=== PATIENT | male | born 1980 | race Two or more races ===

== ENCOUNTER 2017-07-16 08:43 | Inpatient (IN) | payer SELFPAY ==
[2017-07-16 10:22] VITALS: BMI 25.7
--- NOTE | 2017-07-16 13:22 | HP ---
CIWA Score - CIWA Score Nausea/Vomitin-No Nausea/No Vomiting Muscle Tremors: 4-Moderate,w/Arms Extend Anxiety: 3 Agitation: 4-Moderately Restless Paroxysmal Sweats: 3 Orientation: 0-Oriented Tacttile Disturbances: 0-None Auditory Disturbances: 0-None Visual Disturbances: 0-None Headache: 1-Very Mild CIWA-Ar Total Score: 15 Admission ROS BHS - HPI Chief Complaint: I need to be here because I am drinking way too much. Allergies/Adverse Reactions: Allergies Allergy/AdvReac Type Severity Reaction Status Date / Time No Known Allergies Allergy Verified 07/16/17 11:22 History of Present Illness: pt is a 37yr old male with a history of alcohol dependence seeking detox for treatment. Exam Limitations: No Limitations - Ebola screening Have you traveled outside of the country in the last 21 days: No Have you had contact with anyone from an Ebola affected area: No Have you been sick,other than usual withdrawal symptoms: No Do you have a fever: No - Review of Systems Constitutional: Chills, Diaphoresis, Loss of Appetite, Night Sweats, Changes in sleep, Unexplained wgt Loss EENT: reports: No Symptoms Reported Respiratory: reports: No Symptoms reported Cardiac: reports: Syncope GI: reports: Poor Appetite, Poor Fluid Intake : reports: No Symptoms Reported Musculoskeletal: reports: No Symptoms Reported Integumentary: reports: Flushing, Sweating, Other (dry skin) Neuro: reports: Headache, Tingling, Tremors Endocrine: reports: Excessive Sweating, Flushing Hematology: reports: No Symptoms Reported Psychiatric: reports: Judgement Intact, Mood/Affect Appropiate, Orientated x3, Agitated, Anxious Other Systems: Reviewed and Negative Patient History - Patient Medical History Hx Anemia: No Hx Asthma: No Hx Chronic Obstructive Pulmonary Disease (COPD): No Hx Cancer: No Hx Cardiac Disorders: No Hx Congestive Heart Failure: No Hx Hypertension: No Hx Hypercholesterolemia: No Hx Pacemaker: No HX Cerebrovascular Accident: No Hx Seizures: No Hx Dementia: No Hx Diabetes: No Hx Gastrointestinal Disorders: No Hx Liver Disease: No Hx Genitourinary Disorders: No Hx Sexually Transmitted Disorders: No Hx Renal Disease (ESRD): No Hx Thyroid Disease: No Hx Human Immunodeficiency Virus (HIV): No Hx Hepatitis C: No Hx Depression: Yes Hx Suicide Attempt: No (denies) Hx Bipolar Disorder: No Hx Schizophrenia: No - Patient Surgical History Past Surgical History: No - PPD History Previous Implant?: Yes Documented Results: Negative w/o proof Implanted On Prior R Admission?: Yes Date: 06/27/15 PPD to be Administered?: Yes - Reproductive History Patient is a Female of Child Bearing Age (11 -55 yrs old): No - Smoking Cessation Smoking history: Current every day smoker Have you smoked in the past 12 months: Yes Aproximately how many cigarettes per day: 20 Hx Chewing Tobacco Use: No Initiated information on smoking cessation: Yes 'Breaking Loose' booklet given: 07/16/17 - Substance & Tx. History Hx Alcohol Use: Yes Hx Substance Use: Yes Substance Use Type: Alcohol, Marijuana Hx Substance Use Treatment: Yes (last detox 06/2015 [facility]) - Substances Abused Alcohol Route: Oral Frequency: Daily Amount used: 3 pints valerie Age of first use: 17 Date of Last Use: 07/16/17 Marijuana/Hashish Route: Smoking Frequency: Daily Amount used: $20 Age of first use: 17 Date of Last Use: 07/15/17 Family Disease History - Family Disease History Family Disease History: Diabetes: Father (HTN), Heart Disease: Father, Other: Mother (ALCOHOL), Brother (ALCOHOL) Admission Physical Exam S - Vital Signs Vital Signs: Vital Signs - 24 hr 07/16/17 10:19 Temperature 97.3 F L Pulse Rate 72 Respiratory 19 Rate Blood Pressure 123/87 - Physical General Appearance: Yes: Appropriately Dressed, Moderate Distress, Tremorous, Irritable, Sweating, Anxious HEENTM: Yes: Normal Voice Respiratory: Yes: Lungs Clear, Normal Breath Sounds, No Respiratory Distress Neck: Yes: Within Normal Limits Breast: Yes: Within Normal Limits Cardiology: Yes: Regular Rhythm, Regular Rate, S1, S2 Abdominal: Yes: Normal Bowel Sounds, Non Tender, Soft Genitourinary: Yes: Within Normal Limits Back: Yes: Normal Inspection Musculoskeletal: Yes: full range of Motion, Back pain Extremities: Yes: Normal Capillary Refill, Normal Inspection, Tremors Neurological: Yes: Fully Oriented, Alert, Normal Response Integumentary: Yes: Normal Color, Diaphoresis Lymphatic: Yes: Within Normal Limits - Diagnostic (1) Cannabis dependence Current Visit: Yes Status: Chronic (2) Nicotine dependence Current Visit: Yes Status: Chronic Qualifiers: Nicotine product type: cigarettes Substance use status: uncomplicated Qualified Code(s): F17.210 - Nicotine dependence, cigarettes, uncomplicated; F17.210 - Nicotine dependence, cigarettes, uncomplicated (3) Alcohol dependence with uncomplicated withdrawal Current Visit: Yes Status: Chronic Cleared for Admission [facility] - Detox or Rehab [facility] Level of Care: Medically Managed Detox Regimen/Protocol: Librium BHS Breath Alcohol Content Breath Alcohol Content: 0.024 Urine Drug Screen - Results Drug Screen Negative: No Urine Drug Screen Results: THC-Marijuana
[2017-07-16] MEDS ORDERED: MAGNESIUM CITRATE 300 ML BOTTLE PO PRN (13:23)
[2017-07-16] MEDS ORDERED: hydrOXYzine PAMOATE 50 MG CAPSULE (FP) PO PRN (13:23)
[2017-07-16] MEDS ORDERED: chlordiazePOXIDE HCL 25 MG CAPSULE PO PRN (13:23)
[2017-07-16] MEDS ORDERED: NICOTINE POLACRILEX 4 MG GUM BUC PRN (13:23)
[2017-07-16] MEDS ORDERED: MENTHOL/PHENOL 1 EACH UD MM PRN (13:23)
[2017-07-16] MEDS ORDERED: guaiFENesin/D-METHORPHAN HB 10 ML UNIT-DOSE CUPS PO PRN (13:23)
[2017-07-16] MEDS ORDERED: LOPERAMIDE HCL 2 MG CAPSULE PO PRN (13:23)
[2017-07-16] MEDS ORDERED: MAGNESIUM HYDROX 2400MG/30ML ORAL SUSPENSION 30 ML CUP PO PRN (13:23)
[2017-07-16] MEDS ORDERED: P-EPHED 60MG/TRIPROLIDI 2.5MG TABLET PO PRN (13:23)
[2017-07-16] MEDS ORDERED: MAG HYDROX/AL HYDROX/SIMETH 30 ML UNIT-DOSE CUP PO PRN (13:23)
[2017-07-16] MEDS ORDERED: IBUPROFEN 400 MG TABLET (FP) PO PRN (13:23)
[2017-07-16] MEDS ORDERED: ACETAMINOPHEN 325 MG TABLET (FP) PO PRN (13:23)
[2017-07-16] MEDS ORDERED: diphenhydrAMINE HCL 50 MG CAPSULE PO PRN (13:23)
[2017-07-16] MEDS ORDERED: chlordiazePOXIDE HCL 25 MG CAPSULE PO ONE (14:53)
[2017-07-16] MEDS: chlordiazePOXIDE HCL 25 MG CAPSULE PO SCH ×2 (16:35→22:16)
[2017-07-16] MEDS: THIAMINE HCL 100 MG TABLET (FP) PO SCH (22:18)
[2017-07-16 22:20] LABS: URINE APPEARANCE SLCLOUDY; URINE BILIRUBIN NEGATIVE (NEGATIVE); URINE BLOOD NEGATIVE (NEGATIVE); URINE COLOR YELLOW; URINE GLUCOSE (UA) NEGATIVE (NEGATIVE); URINE KETONE NEGATIVE (NEGATIVE); URINE NITRITE NEGATIVE (NEGATIVE); URINE PROTEIN NEGATIVE (NEGATIVE); URINE UROBILINOGEN NEGATIVE mg/dL (0.2-1.0)
[2017-07-16 23:39] LABS: URINE LEUK ESTERASE Negative (NEGATIVE)
[2017-07-17] MEDS: chlordiazePOXIDE HCL 25 MG CAPSULE PO SCH ×4 (05:51→22:27)
[2017-07-17 09:59] LABS: MCH 30.5 pg (25.7-33.7); MCHC 32.6 g/dl (32.0-35.9); MEAN CELL VOLUME 93.8 fl (80-96); MEAN PLT VOLUME 9.1 fl (7.5-11.1); PLATELET COUNT 225 K/MM3 (134-434); RDW 15.6 % (11.9-15.9)
[2017-07-17] MEDS: NICOTINE 21 MG/24 HOURS TOPICAL PATCH TD SCH (10:28)
[2017-07-17] MEDS: PRENATAL VITAMINS W/ FOLIC ACID TABLET (FP) PO SCH (10:28)
[2017-07-17 10:39] LABS: ALK PHOS 85 U/L (45-117); ANION GAP 7 (8-16); BILIRUBIN,TOTAL 0.6 mg/dL (0.2-1.0); CALCIUM 8.6 mg/dL (8.5-10.1); CO2 30 mmol/L (21-32); GLUCOSE,RANDOM 81 mg/dL (74-106); SGOT/AST 29 U/L (15-37); SGPT/ALT 27 U/L (12-78); TOT PROT 7.8 g/dl (6.4-8.2)
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
[2017-07-17] MEDS ORDERED: ONDANSETRON *ODT* 4 MG TABLET SL PRN (10:56)
--- NOTE | 2017-07-17 10:56 | PN ---
[facility] CIWA - CIWA Score Nausea/Vomitin-No Nausea/No Vomiting Muscle Tremors: 4-Moderate,w/Arms Extend Anxiety: 4-Mod. Anxious/Guarded Agitation: 4-Moderately Restless Paroxysmal Sweats: 1-Minimal Palms Moist Orientation: 0-Oriented Tacttile Disturbances: 3-Moderate Itch/Numb/Burn Auditory Disturbances: 0-None Visual Disturbances: 0-None Headache: 0-None Present CIWA-Ar Total Score: 16 BHS Progress Note (SOAP) Subjective: SLIGHT ANXIETY,SWEATS,TREMORS,NAUSEA, INTERMITTENT SLEEP. Objective: 07/17/17 10:55 Vital Signs Temperature 96.2 F L 07/17/17 09:22 Pulse Rate 87 07/17/17 09:22 Respiratory Rate 18 07/17/17 09:22 Blood Pressure 115/86 07/17/17 09:22 O2 Sat by Pulse Oximetry (%) Laboratory Last Values WBC 4.0 K/mm3 (4.0-10.0) 07/17/17 06:00 RBC 4.78 M/mm3 (4.00-5.60) 07/17/17 06:00 Hgb 14.6 GM/dL (11.7-16.9) 07/17/17 06:00 Hct 44.8 % (35.4-49) 07/17/17 06:00 MCV 93.8 fl (80-96) 07/17/17 06:00 MCH 30.5 pg (25.7-33.7) 07/17/17 06:00 MCHC 32.6 g/dl (32.0-35.9) 07/17/17 06:00 RDW 15.6 % (11.9-15.9) D 07/17/17 06:00 Plt Count 225 K/MM3 (134-434) 07/17/17 06:00 MPV 9.1 fl (7.5-11.1) 07/17/17 06:00 Urine Color Yellow 07/16/17 22:00 Urine Appearance Slcloudy 07/16/17 22:00 Urine pH 5.0 (5.0-8.0) 07/16/17 22:00 Ur Specific [place] 1.020 (1.005-1.025) 07/16/17 22:00 Urine Protein Negative (NEGATIVE) 07/16/17 22:00 Urine Glucose (UA) Negative (NEGATIVE) 07/16/17 22:00 Urine Ketones Negative (NEGATIVE) 07/16/17 22:00 Urine Blood Negative (NEGATIVE) 07/16/17 22:00 Urine Nitrite Negative (NEGATIVE) 07/16/17 22:00 Urine Bilirubin Negative (NEGATIVE) 07/16/17 22:00 Urine Urobilinogen Negative mg/dL (0.2-1.0) 07/16/17 22:00 Ur Leukocyte Esterase Negative (NEGATIVE) 07/16/17 22:00 RPR Titer Nonreactive (NONREACTIVE) 07/17/17 06:00 Assessment: 07/17/17 10:56 WITHDRAWAL SX Plan: CONTINUE DETOX ZOFRAN DIRECTED.
[2017-07-17] MEDS ORDERED: traZODone HCL 50 MG TABLET (FP) PO SCH (22:00)
[2017-07-17] MEDS: THIAMINE HCL 100 MG TABLET (FP) PO SCH (22:26)
[2017-07-18] MEDS: chlordiazePOXIDE HCL 25 MG CAPSULE PO SCH ×2 (05:36→10:14)
[2017-07-18 09:20] VITALS: BP 117/83; PULSE 70; TEMP 97.7
[2017-07-18] MEDS: NICOTINE 21 MG/24 HOURS TOPICAL PATCH TD SCH (10:14)
[2017-07-18] MEDS: PRENATAL VITAMINS W/ FOLIC ACID TABLET (FP) PO SCH (10:14)
--- NOTE | 2017-07-18 11:11 | PN ---
[facility] CIWA - CIWA Score Nausea/Vomitin-No Nausea/No Vomiting Muscle Tremors: 4-Moderate,w/Arms Extend Anxiety: 4-Mod. Anxious/Guarded Agitation: 4-Moderately Restless Paroxysmal Sweats: 1-Minimal Palms Moist Orientation: 0-Oriented Tacttile Disturbances: 3-Moderate Itch/Numb/Burn Auditory Disturbances: 0-None Visual Disturbances: 0-None Headache: 0-None Present CIWA-Ar Total Score: 16 BHS Progress Note (SOAP) Subjective: ANXIETY,TREMORS, SWEATS,INTERMITTENT SLEEP. Objective: 07/18/17 11:11 Vital Signs Temperature 97.7 F 07/18/17 09:19 Pulse Rate 70 07/18/17 09:19 Respiratory Rate 18 07/18/17 09:19 Blood Pressure 117/83 07/18/17 09:19 O2 Sat by Pulse Oximetry (%) Laboratory Last Values WBC 4.0 K/mm3 (4.0-10.0) 07/17/17 06:00 RBC 4.78 M/mm3 (4.00-5.60) 07/17/17 06:00 Hgb 14.6 GM/dL (11.7-16.9) 07/17/17 06:00 Hct 44.8 % (35.4-49) 07/17/17 06:00 MCV 93.8 fl (80-96) 07/17/17 06:00 MCH 30.5 pg (25.7-33.7) 07/17/17 06:00 MCHC 32.6 g/dl (32.0-35.9) 07/17/17 06:00 RDW 15.6 % (11.9-15.9) D 07/17/17 06:00 Plt Count 225 K/MM3 (134-434) 07/17/17 06:00 MPV 9.1 fl (7.5-11.1) 07/17/17 06:00 Sodium 141 mmol/L (136-145) 07/17/17 06:00 Potassium 4.2 mmol/L (3.5-5.1) 07/17/17 06:00 Chloride 104 mmol/L (98-107) 07/17/17 06:00 Carbon Dioxide 30 mmol/L (21-32) 07/17/17 06:00 Anion Gap 7 (8-16) L 07/17/17 06:00 BUN 14 mg/dL (7-18) 07/17/17 06:00 Creatinine 1.0 mg/dL (0.7-1.3) D 07/17/17 06:00 Creat Clearance w eGFR > 60 (>60) 07/17/17 06:00 Random Glucose 81 mg/dL (74-106) 07/17/17 06:00 Calcium 8.6 mg/dL (8.5-10.1) 07/17/17 06:00 Total Bilirubin 0.6 mg/dL (0.2-1.0) 07/17/17 06:00 AST 29 U/L (15-37) D 07/17/17 06:00 ALT 27 U/L (12-78) D 07/17/17 06:00 Alkaline Phosphatase 85 U/L (45-117) 07/17/17 06:00 Total Protein 7.8 g/dl (6.4-8.2) 07/17/17 06:00 Albumin 4.0 g/dl (3.4-5.0) 07/17/17 06:00 Urine Color Yellow 07/16/17 22:00 Urine Appearance Slcloudy 07/16/17 22:00 Urine pH 5.0 (5.0-8.0) 07/16/17 22:00 Ur Specific [place] 1.020 (1.005-1.025) 07/16/17 22:00 Urine Protein Negative (NEGATIVE) 07/16/17 22:00 Urine Glucose (UA) Negative (NEGATIVE) 07/16/17 22:00 Urine Ketones Negative (NEGATIVE) 07/16/17 22:00 Urine Blood Negative (NEGATIVE) 07/16/17 22:00 Urine Nitrite Negative (NEGATIVE) 07/16/17 22:00 Urine Bilirubin Negative (NEGATIVE) 07/16/17 22:00 Urine Urobilinogen Negative mg/dL (0.2-1.0) 07/16/17 22:00 Ur Leukocyte Esterase Negative (NEGATIVE) 07/16/17 22:00 RPR Titer Nonreactive (NONREACTIVE) 07/17/17 06:00 Assessment: 07/18/17 11:11 WITHDRAWAL SX Plan: CONTINUE DETOX
--- NOTE | 2017-07-18 11:59 | EKG ---
Test Reason : Blood Pressure : / mmHG Vent. Rate : 059 BPM Atrial Rate : 059 BPM P-R Int : 134 ms QRS Dur : 092 ms QT Int : 436 ms P-R-T Axes : 068 079 063 degrees QTc Int : 431 ms SINUS BRADYCARDIA OTHERWISE NORMAL ECG NO PREVIOUS ECGS AVAILABLE Confirmed by JEANNETTE MCKEON, JAE ([id number]) on 07/18/2017 11:59:14 AM Referred By: Confirmed By:JAE MACHADO MD
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
[2017-07-18] MEDS ORDERED: chlordiazePOXIDE 5 MG CAPSULE PO SCH (17:00)
[2017-07-19] MEDS ORDERED: chlordiazePOXIDE HCL 10 MG CAPSULE PO SCH (17:00)
== END 2017-07-18 12:20 | disposition left against medical advice (07) | DRG 770 ==
LOC: YASAS 08:43 → Y3N 14:31
PROVIDERS: ADMIT Internal Medicine; ATTEND Internal Medicine
PROC: HZ2ZZZZ Detoxification Services for Substance Abuse Treatment (ICD-10-PCS; principal; 2017-07-16)
DX: F10.230 Alcohol dependence with withdrawal, uncomplicated (principal); F12.20 Cannabis dependence, uncomplicated; F17.213 Nicotine dependence, cigarettes, with withdrawal; F10.24 Alcohol dependence with alcohol-induced mood disorder; F10.282 Alcohol dependence with alcohol-induced sleep disorder
CPT/HCPCS: 36415; 80053; 81003; 85027; 86593; 93005; 93010

== ENCOUNTER 2018-03-23 17:43 | Inpatient (IN) | payer SELFPAY ==
[2018-03-23 18:58] VITALS: BMI 28.0
--- NOTE | 2018-03-23 19:24 | HP ---
CIWA Score - CIWA Score Nausea/Vomitin Muscle Tremors: 3 Anxiety: 3 Agitation: 2 Paroxysmal Sweats: 2 Orientation: 0-Oriented Tacttile Disturbances: 2-Mild Itch/Numbness/Burn Auditory Disturbances: 0-None Visual Disturbances: 1-Very Mild Sensitivity Headache: 1-Very Mild CIWA-Ar Total Score: 17 Admission ROS BHS - HPI Chief Complaint: I am alcoholic and I need help Allergies/Adverse Reactions: Allergies Allergy/AdvReac Type Severity Reaction Status Date / Time No Known Allergies Allergy Verified 07/16/17 11:22 History of Present Illness: 38 y/o male presents for detox from alcohol. His last treatment was in July of 2017 at [facility]. Exam Limitations: No Limitations - Ebola screening Have you traveled outside of the country in the last 21 days: No (N) Have you had contact with anyone from an Ebola affected area: No Have you been sick,other than usual withdrawal symptoms: No Do you have a fever: No - Review of Systems Constitutional: Changes in sleep EENT: reports: No Symptoms Reported Respiratory: reports: Cough, Shortness of Breath GI: reports: No Symptoms Reported : reports: No Symptoms Reported Musculoskeletal: reports: Back Pain, Joint Pain, Muscle Pain Integumentary: reports: No Symptoms Reported Neuro: reports: Headache, Tingling, Tremors Endocrine: reports: No Symptoms Reported Hematology: reports: No Symptoms Reported Psychiatric: reports: Anxious, Depressed Other Systems: Reviewed and Negative Patient History - Patient Medical History Hx Anemia: No Hx Asthma: No Hx Chronic Obstructive Pulmonary Disease (COPD): No Hx Cancer: No Hx Cardiac Disorders: No Hx Congestive Heart Failure: No Hx Hypertension: No Hx Hypercholesterolemia: No Hx Pacemaker: No HX Cerebrovascular Accident: No Hx Seizures: No Hx Dementia: No Hx Diabetes: No Hx Gastrointestinal Disorders: No Hx Liver Disease: No Hx Genitourinary Disorders: No Hx Sexually Transmitted Disorders: No Hx Renal Disease (ESRD): No Hx Thyroid Disease: No Hx Human Immunodeficiency Virus (HIV): No Hx Hepatitis C: No Hx Depression: Yes Hx Suicide Attempt: No (denies) Hx Bipolar Disorder: No Hx Schizophrenia: No - Patient Surgical History Past Surgical History: No - PPD History Previous Implant?: Yes Documented Results: Negative w/proof Implanted On Prior [facility] Admission?: Yes Date: 07/18/17 PPD to be Administered?: No - Smoking Cessation Smoking history: Current every day smoker Have you smoked in the past 12 months: Yes Aproximately how many cigarettes per day: 20 Hx Chewing Tobacco Use: No Initiated information on smoking cessation: Yes 'Breaking Loose' booklet given: 03/23/18 - Substances Abused Alcohol Route: Oral Frequency: Daily Amount used: LIQUOR- 2 LITRES Age of first use: 17 Date of Last Use: 03/23/18 Marijuana/Hashish Route: Smoking Frequency: Daily Amount used: $10 WORTH Age of first use: 17 Date of Last Use: 03/23/18 Family Disease History - Family Disease History Family Disease History: Diabetes: Father (HTN), Heart Disease: Father, Other: Mother (ALCOHOL), Brother (ALCOHOL) Admission Physical Exam [facility] - Vital Signs Vital Signs: Vital Signs - 24 hr 03/23/18 18:55 Temperature 98.7 F Pulse Rate 111 H Respiratory 20 Rate Blood Pressure 109/74 - Physical General Appearance: Yes: No Apparent Distress HEENTM: Yes: EOMI, Hearing grossly Normal, Normal ENT Inspection, Normocephalic , Normal Voice, ABDUOLAYE Respiratory: Yes: Chest Non-Tender, Lungs Clear, Normal Breath Sounds, No Respiratory Distress, No Accessory Muscle Use Neck: Yes: No masses,lesions,Nodules, Supple Breast: Yes: Breast Exam Deferred Cardiology: Yes: Within Normal Limits, Regular Rhythm, Regular Rate Abdominal: Yes: Normal Bowel Sounds, Non Tender Genitourinary: Yes: Within Normal Limits Back: Yes: Normal Inspection Musculoskeletal: Yes: full range of Motion, Gait Steady, Pelvis Stable, Back pain, Muscle Pain Extremities: Yes: Normal Range of Motion, Tremors Neurological: Yes: pickle maker II-XII NML intact, Fully Oriented, Alert, Normal Mood/ Affect, Normal Response Integumentary: Yes: Clammy Lymphatic: Yes: Within Normal Limits - Diagnostic (1) Alcohol dependence with uncomplicated withdrawal Current Visit: No Status: Acute (2) Cannabis dependence Current Visit: No Status: Acute (3) Nicotine dependence Current Visit: No Status: Acute Qualifiers: Nicotine product type: cigarettes Substance use status: uncomplicated Qualified Code(s): F17.210 - Nicotine dependence, cigarettes, uncomplicated Cleared for Admission [facility] - Detox or Rehab [facility] Level of Care: Medically Managed Detox Regimen/Protocol: Librium [facility] Breath Alcohol Content Breath Alcohol Content: 0.180 Urine Drug Screen - Results Drug Screen Negative: No Urine Drug Screen Results: THC-Marijuana, REBEKA-Cocaine
[2018-03-23] MEDS ORDERED: hydrOXYzine PAMOATE 50 MG CAPSULE (FP) PO PRN (19:29)
[2018-03-23] MEDS ORDERED: NICOTINE POLACRILEX 2 MG GUM BC PRN (19:29)
[2018-03-23] MEDS ORDERED: MAGNESIUM HYDROX 2400MG/30ML ORAL SUSPENSION 30 ML CUP PO PRN (19:29)
[2018-03-23] MEDS ORDERED: MENTHOL/PHENOL 1 EACH UD MM PRN (19:29)
[2018-03-23] MEDS ORDERED: IBUPROFEN 400 MG TABLET (FP) PO PRN (19:29)
[2018-03-23] MEDS ORDERED: ACETAMINOPHEN 325 MG TABLET (FP) PO PRN (19:29)
[2018-03-23] MEDS ORDERED: LOPERAMIDE HCL 2 MG CAPSULE PO PRN (19:29)
[2018-03-23] MEDS ORDERED: chlordiazePOXIDE HCL 25 MG CAPSULE PO PRN (19:29)
[2018-03-23] MEDS ORDERED: MAGNESIUM CITRATE 300 ML BOTTLE PO PRN (19:29)
[2018-03-23] MEDS ORDERED: guaiFENesin/D-METHORPHAN HB 10 ML UNIT-DOSE CUPS PO PRN (19:29)
[2018-03-23] MEDS ORDERED: MAG HYDROX/AL HYDROX/SIMETH 30 ML UNIT-DOSE CUP PO PRN (19:29)
[2018-03-23] MEDS ORDERED: P-EPHED 60MG/TRIPROLIDI 2.5MG TABLET PO PRN (19:29)
[2018-03-23] MEDS ORDERED: chlordiazePOXIDE HCL 25 MG CAPSULE PO ONE (19:45)
[2018-03-23] MEDS: NICOTINE 21 MG/24 HOURS TOPICAL PATCH TD SCH (20:36)
[2018-03-23] MEDS ORDERED: MELATONIN 5 MG TABLETS PO PRN (22:00)
[2018-03-23] MEDS: chlordiazePOXIDE HCL 25 MG CAPSULE PO SCH (23:09)
[2018-03-23] MEDS: THIAMINE HCL 100 MG TABLET (FP) PO SCH (23:09)
[2018-03-24] MEDS: chlordiazePOXIDE HCL 25 MG CAPSULE PO SCH ×4 (05:19→22:22)
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
[2018-03-24] MEDS ORDERED: PRENATAL VITAMINS W/ FOLIC ACID TABLET (FP) PO SCH (10:00)
[2018-03-24] MEDS: NICOTINE 21 MG/24 HOURS TOPICAL PATCH TD SCH (10:20)
[2018-03-24] MEDS ORDERED: ZOLPIDEM TARTRATE 10 MG TABLET (PARK CARE ONLY) PO PRN (10:32)
[2018-03-24 11:09] LABS: HEMATOCRIT 40.5 % (35.4-49); HEMOGLOBIN 13.2 GM/dL (11.7-16.9); MCH 29.1 pg (25.7-33.7); MCHC 32.6 g/dl (32.0-35.9); MEAN CELL VOLUME 89.2 fl (80-96); MEAN PLT VOLUME 8.3 fl (7.5-11.1); PLATELET COUNT 210 K/MM3 (134-434); RBC 4.54 M/mm3 (4.00-5.60); RDW 13.3 % (11.9-15.9); WHITE BLOOD COUNT 3.1 K/mm3 (4.0-10.0)
[2018-03-24 11:20] LABS: ALBUMIN 3.2 g/dl (3.4-5.0); ANION GAP 4 (8-16); BILIRUBIN,TOTAL 0.2 mg/dL (0.2-1.0); BLOOD UREA NITROGEN 14 mg/dL (7-18); CALCIUM 8.6 mg/dL (8.5-10.1); CHLORIDE 109 mmol/L (98-107); CO2 33 mmol/L (21-32); GLUCOSE,RANDOM 97 mg/dL (74-106); POTASSIUM 3.8 mmol/L (3.5-5.1); SGOT/AST 55 U/L (15-37); SGPT/ALT 53 U/L (12-78); SODIUM 146 mmol/L (136-145); TOT PROT 6.6 g/dl (6.4-8.2)
[2018-03-24 11:21] LABS: ALK PHOS 74 U/L (45-117)
--- NOTE | 2018-03-24 13:15 | PN ---
S CIWA - CIWA Score Nausea/Vomitin-No Nausea/No Vomiting Muscle Tremors: 4-Moderate,w/Arms Extend Anxiety: 4-Mod. Anxious/Guarded Agitation: 4-Moderately Restless Paroxysmal Sweats: 1-Minimal Palms Moist Orientation: 0-Oriented Tacttile Disturbances: 0-None Auditory Disturbances: 0-None Visual Disturbances: 0-None Headache: 0-None Present CIWA-Ar Total Score: 13 [facility] Progress Note (SOAP) Subjective: ANXIETY,SWEATS, TREMORS,MUSCLE ACHES, HEADACHE. Objective: 03/24/18 13:14 Vital Signs 03/24/18 03/24/18 06:18 09:38 Temperature 98.6 F 98.9 F Pulse Rate 90 71 Respiratory 18 16 Rate Blood Pressure 98/63 86/58 Laboratory Tests 03/24/18 03/24/18 03/24/18 07:30 07:30 07:30 WBC 3.1 L RBC 4.54 Hgb 13.2 Hct 40.5 MCV 89.2 MCH 29.1 MCHC 32.6 RDW 13.3 D Plt Count 210 MPV 8.3 Sodium 146 H Potassium 3.8 Chloride 109 H Carbon Dioxide 33 H Anion Gap 4 L BUN 14 Creatinine 1.0 Creat Clearance w eGFR > 60 Random Glucose 97 Calcium 8.6 Total Bilirubin 0.2 AST 55 H D ALT 53 D Alkaline Phosphatase 74 Total Protein 6.6 Albumin 3.2 L RPR Titer HIV 1&2 Antibody Screen Negative HIV P24 Antigen Negative 03/24/18 07:30 WBC RBC Hgb Hct MCV MCH MCHC RDW Plt Count MPV Sodium Potassium Chloride Carbon Dioxide Anion Gap BUN Creatinine Creat Clearance w eGFR Random Glucose Calcium Total Bilirubin AST ALT Alkaline Phosphatase Total Protein Albumin RPR Titer Nonreactive HIV 1&2 Antibody Screen HIV P24 Antigen Assessment: 03/24/18 13:14 WITHDRAWAL SX Plan: CONTINUE DETOX MOTRIN OR TYLENOL PRN
[2018-03-24] MEDS: THIAMINE HCL 100 MG TABLET (FP) PO SCH (22:22)
[2018-03-25] MEDS: chlordiazePOXIDE HCL 25 MG CAPSULE PO SCH (05:33)
--- NOTE | 2018-03-25 09:06 | PN ---
[facility] Progress Note (SOAP) Subjective: "I want to leave" Denies any complaints Objective: 03/25/18 09:04 A & O x 3, gait steady Vital Signs Temperature 97.3 F L 03/25/18 06:27 Pulse Rate 88 03/25/18 06:27 Respiratory Rate 18 03/25/18 06:27 Blood Pressure 107/70 03/25/18 06:27 O2 Sat by Pulse Oximetry (%) Assessment: 03/25/18 09:05 Not receptive to encouragement to complete discharge Plan: Will bve discharged Against medical advice
--- NOTE | 2018-03-25 09:09 | DS ---
[facility] Detox Discharge Summary Admission Date: 03/23/18 Discharge Date: 03/25/18 - History Additional Comments: Pt insisting to leave detox unit today. Insists on leaving despite being enmcouraged to leave since he has only one more day to end of detox. States he will go back to his program- [facility]. Denies Home meds nor need for prescriptions GAit steady, A & O x 3, in no acute distress - Physical Exam Results Vital Signs: Vital Signs Temperature 97.3 F L 03/25/18 06:27 Pulse Rate 88 03/25/18 06:27 Respiratory Rate 18 03/25/18 06:27 Blood Pressure 107/70 03/25/18 06:27 O2 Sat by Pulse Oximetry (%) Pertinent Admission Physical Exam Findings: withdrawal sx - Medication Discharge Medications: Ambulatory Orders NK [No Known Home Medication] 06/29/15 - Diagnosis (1) Alcohol dependence with uncomplicated withdrawal Current Visit: Yes Status: Acute (2) Cannabis dependence Current Visit: Yes Status: Chronic (3) Nicotine dependence Current Visit: Yes Status: Chronic Qualifiers: Nicotine product type: cigarettes Substance use status: in withdrawal Qualified Code(s): F17.213 - Nicotine dependence, cigarettes, with withdrawal (4) Substance-induced anxiety disorder Current Visit: Yes Status: Chronic (5) Substance-induced sleep disorder Current Visit: Yes Status: Chronic - AMA Did Patient Leave Against Medical Advice: Yes
[2018-03-25 09:32] VITALS: BP 88/67; PULSE 77; TEMP 97.8
[2018-03-25 14:41] LABS: URINE APPEARANCE CLEAR; URINE BILIRUBIN NEGATIVE (<2.0 mg/dL); URINE COLOR YELLOW; URINE GLUCOSE (UA) NEGATIVE (NEGATIVE); URINE KETONE NEGATIVE (NEGATIVE); URINE LEUK ESTERASE TRACE (NEGATIVE); URINE NITRITE NEGATIVE (NEGATIVE); URINE PROTEIN NEGATIVE (NEGATIVE); URINE UROBILINOGEN NEGATIVE mg/dL (0.2-1.0)
[2018-03-25 15:14] LABS: EPI CELLS RARE /HPF (FEW); URINE MUCUS RARE
--- NOTE | 2018-03-25 22:13 | EKG ---
Test Reason : Blood Pressure : / mmHG Vent. Rate : 095 BPM Atrial Rate : 095 BPM P-R Int : 110 ms QRS Dur : 092 ms QT Int : 350 ms P-R-T Axes : 064 077 046 degrees QTc Int : 439 ms SINUS RHYTHM WITH SHORT CT OTHERWISE NORMAL ECG WHEN COMPARED WITH ECG OF 16-JUL-2017 15:25, VENT. RATE HAS INCREASED BY 36 BPM Confirmed by SELMA BOWLES MD ([id number]) on 03/25/2018 10:12:37 PM Referred By: Confirmed By:SELMA BOWLES MD
[2018-03-25] MEDS ORDERED: chlordiazePOXIDE 5 MG CAPSULE PO SCH (23:00)
[2018-03-26] MEDS ORDERED: chlordiazePOXIDE HCL 10 MG CAPSULE PO SCH (23:00)
== END 2018-03-25 09:15 | disposition left against medical advice (07) | DRG 770 ==
LOC: YASAS 17:43 → Y3N 18:11
PROVIDERS: ADMIT Family Medicine Addiction Medicine; ATTEND Family Medicine Addiction Medicine
PROC: HZ2ZZZZ Detoxification Services for Substance Abuse Treatment (ICD-10-PCS; principal; 2018-03-23)
DX: F10.230 Alcohol dependence with withdrawal, uncomplicated (principal); F12.20 Cannabis dependence, uncomplicated; F17.213 Nicotine dependence, cigarettes, with withdrawal; F19.280 Other psychoactive substance dependence with psychoactive substance-induced anxiety disorder; F19.282 Other psychoactive substance dependence with psychoactive substance-induced sleep disorder
CPT/HCPCS: 36415; 80053; 81003; 81015; 85027; 86593; 87389; 93005; 93010